=== PATIENT | male | born 1985 | race Caucasian/White ===

== ENCOUNTER 2016-10-30 23:52 | Emergency (ER) | payer OTHER ==
[~2016-10-30] VITALS: Ht 190.5 cm; Wt 101.6 kg
[2016-10-31] VITALS: BP 148/70; PULSE 61; RESP 17; TEMP 99.2; O2SAT 98
--- NOTE | 2016-10-31 | NUR ---
Patient to ER bed 4 for evaluation. Side rails up. Report given to NUBIA Bah.
--- NOTE | 2016-10-31 00:13 | NUR ---
Pt compalin of hitting his head and complain of right head and neack pain. Denied dizziness at the time. Denied SOB at the time. will continue to monitor
--- NOTE | 2016-10-31 00:15 | NUR ---
ER at bedside examining patient.
[2016-10-31] MEDS ORDERED: DULO60CA41 PO (00:18)
[2016-10-31] MEDS ORDERED: DEXL60CA3 PO (00:19)
[2016-10-31] MEDS ORDERED: BUPR300T55 PO (00:19)
[2016-10-31] MEDS ORDERED: TRAZ150T77 PO (00:20)
--- NOTE | 2016-10-31 00:30 | NUR ---
Pt was take to radiology.
[2016-10-31] MEDS ORDERED: ACETAMINOPHEN 500 MG TABLET PO ONE (01:30)
[2016-10-31 01:40] VITALS: BP 142/70; PULSE 61; RESP 17; TEMP 98.9; O2SAT 98
--- NOTE | 2016-10-31 01:40 | NUR ---
Patient given written and verbal discharge instructions and verbalizes understanding. ER MD discussed with patient the results and treatment provided. Patient in stable condition. Rx of tramadol given. Patient educated on pain management and to follow up with PMD. Pain Scale 0/10. Opportunity for questions provided and answered.
== END 2016-10-31 01:40 | disposition home or self-care (01) ==
LOC: SED 23:52
DX: S00.03XA Contusion of scalp, initial encounter (principal); Z88.2 Allergy status to sulfonamides; W22.8XXA Striking against or struck by other objects, initial encounter; Y93.89 Activity, other specified; Y92.89 Other specified places as the place of occurrence of the external cause; Y99.8 Other external cause status
CPT/HCPCS: 70450-TC; 99284

== ENCOUNTER 2016-11-26 23:34 | Emergency (ER) | payer OTHER ==
[~2016-11-26] VITALS: Ht 190.5 cm; Wt 103.0 kg
[~2016-11-26 23:34] MED LIST: BUPR300T55 PO; DEXL60CA3 PO; DULO60CA41 PO; TRAZ150T77 PO
[2016-11-26 23:40] VITALS: BP_SYST 148
[2016-11-27] MEDS ORDERED: KETOROLAC TROMETHAMINE 60 MG/2 ML VIAL IM ONE (03:15)
[2016-11-27 04:15] VITALS: BP_SYST 140
== END 2016-11-27 04:15 | disposition home or self-care (01) ==
LOC: SED 23:34
DX: G43.909 Migraine, unspecified, not intractable, without status migrainosus (principal); J45.909 Unspecified asthma, uncomplicated; Z88.2 Allergy status to sulfonamides; Z79.899 Other long term (current) drug therapy
CPT/HCPCS: 96372; 99283; J1885

== ENCOUNTER 2017-06-05 20:49 | Emergency (ER) | payer OTHER ==
[~2017-06-05] VITALS: Ht 190.5 cm; Wt 104.3 kg
[2017-06-05 20:50] VITALS: BP_SYST 145
[2017-06-05] MEDS ORDERED: ONDANSETRON 4 MG ODT TAB PO ONE (22:30)
[2017-06-05] MEDS ORDERED: NACL 0.9% 1,000 ML IV ONE (22:30)
[2017-06-05] MEDS ORDERED: KETOROLAC TROMETHAMINE 30 MG VIAL IVP ONE (23:15)
[2017-06-05 23:35] VITALS: BP_SYST 148
== END 2017-06-05 23:29 | disposition home or self-care (01) ==
LOC: SED 20:49
DX: A08.4 Viral intestinal infection, unspecified (principal); K21.9 Gastro-esophageal reflux disease without esophagitis; J45.909 Unspecified asthma, uncomplicated; F43.10 Post-traumatic stress disorder, unspecified; M79.1 Myalgia; Z88.2 Allergy status to sulfonamides; Z86.59 Personal history of other mental and behavioral disorders
CPT/HCPCS: 96361; 96374; 99284; J1885; J7030; Q0162

== ENCOUNTER 2018-05-09 04:34 | Emergency (ER) | payer OTHER ==
[~2018-05-09] VITALS: Ht 188 cm; Wt 113.4 kg
[~2018-05-09 04:34] MED LIST changes: -DEXL60CA3 PO; +DEXL60CA4 PO
[2018-05-09 04:35] VITALS: BP_SYST 134
[2018-05-09] MEDS ORDERED: NS 500 ML IV ONE (05:00)
[2018-05-09] MEDS ORDERED: ASPIRIN 325 MG TABLET (ECOTRIN) PO ONE (05:00)
[2018-05-09] MEDS ORDERED: LISI30TA36 PO (05:04)
[2018-05-09] MEDS ORDERED: BUPR-120 PO (05:05)
[2018-05-09] MEDS ORDERED: DULO60CA41 PO (05:06)
[2018-05-09] MEDS ORDERED: FAMOTIDINE PF 20 MG/2 ML VIAL IVP ONE (05:15)
[2018-05-09] MEDS ORDERED: ONDANSETRON HCL 4 MG/2 ML VIAL IVP ONE (05:15)
[2018-05-09 05:40] LABS: CLARITY/URINE CLEAR (CLEAR); COLOR,URINE YELLOW (YELLOW); GLUCOSE,URINE NEGATIVE (NEGATIVE); KETONES,URINE 1+ (NEGATIVE); PROTEIN URINE NEGATIVE (NEGATIVE)
[2018-05-09 05:40] LABS: BASOPHILS % (AUTO) 0.2 % (0.0-2.0); EOSINOPHILS # (AUTO) 0.1 K/uL (0.0-0.4); EOSINOPHILS % (AUTO) 1.4 % (0.0-4.0); HEMATOCRIT 46.4 % (36-54); HEMOGLOBIN 15.5 g/dL (14.0-18.0); LYMPHOCYTES # (AUTO) 1.7 K/uL (1.0-5.5); LYMPHOCYTES % (AUTO) 20.7 % (20.5-51.5); MEAN CORPUSCULAR HEMOGLOBIN 30 pg (27-31); MEAN CORPUSCULAR HGB CONC 33 % (32-36); MEAN CORPUSCULAR VOLUME 91 fL (79.0-98.0); MONOCYTES # (AUTO) 0.8 K/uL (0.0-1.0); MONOCYTES % (AUTO) 9.9 % (1.7-9.3); NEUTROPHILS # (AUTO) 5.5 K/uL (1.8-7.7); NEUTROPHILS % (AUTO) 67.8 % (40.0-70.0); PLATELET COUNT (AUTO) 190 K/uL (130-430); RED BLOOD CELL COUNT(AUTO) 5.09 MIL/uL (4.2-6.2); RED CELL DISTRIBUTION WIDTH 12.5 % (9.0-15.0); WHITE BLOOD COUNT (AUTO) 8.1 K/uL (4.8-10.8)
[2018-05-09 05:41] LABS: BILIRUBIN,URINE NEGATIVE (NEGATIVE); BLOOD, URINE NEGATIVE (NEGATIVE); LEUKOCYTE ESTERASE ,URINE NEGATIVE (NEGATIVE); NITRITE, URINE NEGATIVE (NEGATIVE); UROBILINOGEN,URINE 0.2 (0.2-1.0)
[2018-05-09 05:52] LABS: ANION GAP 12 (5-15); CALCIUM 9.4 mg/dL (8.4-11.0); CHLORIDE 98 mmol/L (98-107); CREATININE 1.17 mg/dL (0.55-1.30); GLUCOSE 114 mg/dL (70-99); POTASSIUM 3.6 mmol/L (3.5-5.1); SODIUM SERUM 136 mmol/L (136-145); UREA NITROGEN, BLOOD 28 mg/dL (8-21)
[2018-05-09 05:57] LABS: GFR AFRICAN AMERICAN 92 mL/min (>90)
[2018-05-09 06:05] LABS: ALANINE AMINOTRANSFERASE 46 U/L (12-78); ALBUMIN 4.1 g/dL (3.4-4.8); ASPARTATE AMINOTRANSFERASE 37 U/L (10-37); TOTAL BILIRUBIN 0.8 mg/dL (0.0-1.0)
[2018-05-09 06:21] VITALS: BP_SYST 128
== END 2018-05-09 06:21 | disposition home or self-care (01) ==
LOC: SED 04:34
DX: R07.89 Other chest pain (principal); F41.9 Anxiety disorder, unspecified; J45.909 Unspecified asthma, uncomplicated; K21.9 Gastro-esophageal reflux disease without esophagitis; F43.10 Post-traumatic stress disorder, unspecified; Z88.2 Allergy status to sulfonamides; Z79.899 Other long term (current) drug therapy
CPT/HCPCS: 36415; 71045; 80053; 81003; 84484; 85025; 93005; 96374; 96375; 99284; J2405; J3490; J7030

== ENCOUNTER 2018-06-16 12:03 | Emergency (ER) | payer OTHER ==
[~2018-06-16] VITALS: Ht 190.5 cm; Wt 109.3 kg
[~2018-06-16 12:03] MED LIST changes: +BUPR-120 PO; -BUPR300T55 PO; +LISI30TA36 PO
--- NOTE | 2018-06-16 12:15 | NUR ---
Mamta miller in [facility] - 06/16/18 at 1239 by [email or web address] ELVA Thayer at bedside examining patient.
--- NOTE | 2018-06-16 12:16 | NUR ---
Pt wheeled to bed 6
--- NOTE | 2018-06-16 12:16 | NUR ---
ER at bedside examining patient.
[2018-06-16 12:21] VITALS: BP_SYST 143
--- NOTE | 2018-06-16 12:25 | NUR ---
patient AAOx4 arriving from the gym. patient states he started having sever generalized cramps since working out. patient states he has a disorder that causes him to sweat a lot. 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 patient is otherwise healthy. no other complaint or injury at this time.
[2018-06-16] MEDS ORDERED: NACL 0.9% 1,000 ML IV ONE ×2 (12:30→13:45)
[2018-06-16] MEDS ORDERED: LORazepam 2 MG/ML VIAL (FOR ER USE) IVP ONE (12:30)
--- NOTE | 2018-06-16 12:43 | NUR ---
Medication was given to pt, tolerated well
[2018-06-16 13:04] LABS: BASOPHILS % (AUTO) 0.3 % (0.0-2.0); EOSINOPHILS # (AUTO) 0.1 K/uL (0.0-0.4); EOSINOPHILS % (AUTO) 0.9 % (0.0-4.0); HEMATOCRIT 49.5 % (36-54); LYMPHOCYTES % (AUTO) 14.4 % (20.5-51.5); MEAN CORPUSCULAR HEMOGLOBIN 31 pg (27-31); MEAN CORPUSCULAR HGB CONC 34 % (32-36); MEAN CORPUSCULAR VOLUME 90 fL (79.0-98.0); MONOCYTES # (AUTO) 0.7 K/uL (0.0-1.0); MONOCYTES % (AUTO) 9.4 % (1.7-9.3); NEUTROPHILS # (AUTO) 5.4 K/uL (1.8-7.7); PLATELET COUNT (AUTO) 213 K/uL (130-430); RED CELL DISTRIBUTION WIDTH 12.7 % (9.0-15.0); WHITE BLOOD COUNT (AUTO) 7.2 K/uL (4.8-10.8)
[2018-06-16 13:08] LABS: CALCIUM 10.5 mg/dL (8.4-11.0); CREATININE 1.9 mg/dL (0.55-1.30); POTASSIUM 4.6 mmol/L (3.5-5.1)
[2018-06-16 13:20] LABS: ALBUMIN 4.9 g/dL (3.4-4.8); TOTAL BILIRUBIN 0.7 mg/dL (0.0-1.0)
--- NOTE | 2018-06-16 13:40 | NUR ---
Pt is resting in bed with no noted distress or discomfort.
[2018-06-16 14:36] VITALS: BP_SYST 140
--- NOTE | 2018-06-16 14:36 | NUR ---
Patient given written and verbal discharge instructions and verbalizes understanding. ER MD discussed with patient the results and treatment provided. Patient in stable condition. ID arm band removed. IV catheter removed intact and dressing applied, no active bleeding. No Rx given. Patient educated on pain management and to follow up with PMD. Pain Scale 0. Opportunity for questions provided and answered.
== END 2018-06-16 14:36 | disposition home or self-care (01) ==
LOC: SED 12:03
DX: R25.2 Cramp and spasm (principal); E86.0 Dehydration; K21.9 Gastro-esophageal reflux disease without esophagitis; J45.909 Unspecified asthma, uncomplicated; I10 Essential (primary) hypertension; F43.10 Post-traumatic stress disorder, unspecified; Z88.2 Allergy status to sulfonamides; Z79.899 Other long term (current) drug therapy
CPT/HCPCS: 36415; 80053; 85025; 96361; 96374; 99283; J2060; J7030

== ENCOUNTER 2018-10-23 15:54 | Emergency (ER) | payer OTHER ==
[~2018-10-23] VITALS: Ht 188 cm; Wt 108.9 kg
[2018-10-23 15:56] VITALS: BP_SYST 147
[2018-10-23] MEDS ORDERED: ASPIRIN 81 MG TAB.CHEW PO ONE (17:30)
[2018-10-23 17:42] LABS: BASOPHILS % (AUTO) 0.3 % (0.0-2.0); EOSINOPHILS # (AUTO) 0.1 K/uL (0.0-0.4); HEMATOCRIT 45.8 % (36-54); HEMOGLOBIN 16.1 g/dL (14.0-18.0); LYMPHOCYTES # (AUTO) 1.1 K/uL (1.0-5.5); LYMPHOCYTES % (AUTO) 13.8 % (20.5-51.5); MEAN CORPUSCULAR HEMOGLOBIN 31 pg (27-31); MEAN CORPUSCULAR HGB CONC 35 % (32-36); MEAN CORPUSCULAR VOLUME 89 fL (79.0-98.0); MONOCYTES # (AUTO) 0.7 K/uL (0.0-1.0); MONOCYTES % (AUTO) 8.4 % (1.7-9.3); NEUTROPHILS # (AUTO) 6.3 K/uL (1.8-7.7); NEUTROPHILS % (AUTO) 76.5 % (40.0-70.0); PLATELET COUNT (AUTO) 181 K/uL (130-430); RED BLOOD CELL COUNT(AUTO) 5.15 MIL/uL (4.2-6.2); RED CELL DISTRIBUTION WIDTH 13.1 % (9.0-15.0); WHITE BLOOD COUNT (AUTO) 8.2 K/uL (4.8-10.8)
[2018-10-23 17:58] LABS: CALCIUM 9.5 mg/dL (8.4-11.0); CREATININE 1.38 mg/dL (0.55-1.30); POTASSIUM 4.3 mmol/L (3.5-5.1)
[2018-10-23 18:03] LABS: ALBUMIN 4.3 g/dL (3.4-4.8); TOTAL BILIRUBIN 0.6 mg/dL (0.0-1.0)
[2018-10-23] MEDS ORDERED: KETOROLAC TROMETHAMINE 60 MG/2 ML VIAL IM ONE (18:45)
[2018-10-23 20:57] VITALS: BP_SYST 132
== END 2018-10-23 20:57 | disposition home or self-care (01) ==
LOC: SED 15:54
DX: R07.89 Other chest pain (principal); I10 Essential (primary) hypertension; J45.909 Unspecified asthma, uncomplicated; K21.9 Gastro-esophageal reflux disease without esophagitis; Z88.2 Allergy status to sulfonamides; Z79.899 Other long term (current) drug therapy
CPT/HCPCS: 36415; 71045; 80053; 84484; 85025; 93005; 96372; 99284; J1885

== ENCOUNTER 2022-03-02 21:52 | Emergency (ER) | payer BC, OTHER ==
[~2022-03-02] VITALS: Ht 188 cm; Wt 79.4 kg
[~2022-03-02 21:52] MED LIST changes: -DULO60CA41 PO; +DULO60CA42 PO
[2022-03-02 22:06] VITALS: BP_SYST 150
--- NOTE | 2022-03-02 22:10 | NUR ---
PT HERE BIB BLS TRANSPORT C/O CRMAPING WITH NAUSEA AND VOMITING AFTER DOING JUJITSU TONIGHT. PT DENIES FALL/TRAUMA. PMH:HTN,PTSD PT AAOX4, NO SOB NOTED AND NOT IN ANY DISTRESS AT THIS TIME. PENDING MD MCKEON
[2022-03-02] MEDS ORDERED: NACL 0.9% 1,000 ML IV ONE (23:30)
[2022-03-03 00:18] LABS: EOSINOPHILS # (AUTO) 0.1 K/uL (0.0-0.4); RED BLOOD CELL COUNT(AUTO) 5.03 MIL/uL (4.2-6.2)
[2022-03-03 00:39] LABS: CALCIUM 9.7 mg/dL (8.4-11.0); CREATININE 1.58 mg/dL (0.55-1.30); POTASSIUM 4.4 mmol/L (3.5-5.1)
[2022-03-03 00:54] LABS: BASOPHILS # (AUTO) 0.2 K/uL (0.0-0.2); EOSINOPHILS % (AUTO) 0.8 % (0.0-4.0); HEMATOCRIT 44.5 % (36-54); LYMPHOCYTES # (AUTO) 0.9 K/uL (1.0-5.5); MEAN CORPUSCULAR VOLUME 89 fL (79.0-98.0); MONOCYTES # (AUTO) 0.8 K/uL (0.0-1.0); MONOCYTES % (AUTO) 7.6 % (1.7-9.3); NEUTROPHILS # (AUTO) 8.9 K/uL (1.8-7.7); NEUTROPHILS % (AUTO) 81.6 % (40.0-70.0); PLATELET COUNT (AUTO) 194 K/uL (130-430); RED CELL DISTRIBUTION WIDTH 13.5 % (9.0-15.0); WHITE BLOOD COUNT (AUTO) 10.9 K/uL (4.8-10.8)
[2022-03-03] MEDS ORDERED: NACL 0.9% 1,000 ML IV ONE (01:15)
--- NOTE | 2022-03-03 01:24 | NUR ---
Pt states he is still having leg cramps and requesting flexeril. made aware.
[2022-03-03 03:05] VITALS: BP_SYST 143
--- NOTE | 2022-03-03 03:14 | NUR ---
Patient given written and verbal discharge instructions and verbalizes understanding. ER MD discussed with patient the results and treatment provided. Patient in stable condition. ID arm band removed. IV catheter removed intact and dressing applied, no active bleeding. Rx of N/A given. Patient educated on pain management and to follow up with PMD. Pain Scale . Opportunity for questions provided and answered. Medication side effect fact sheet provided.
== END 2022-03-03 03:13 | disposition home or self-care (01) ==
LOC: SED 21:52
DX: T73.3XXA Exhaustion due to excessive exertion, initial encounter (principal); E86.0 Dehydration; N28.9 Disorder of kidney and ureter, unspecified; R53.1 Weakness; R25.2 Cramp and spasm; R42 Dizziness and giddiness; J45.909 Unspecified asthma, uncomplicated; I10 Essential (primary) hypertension; K21.9 Gastro-esophageal reflux disease without esophagitis; Z88.2 Allergy status to sulfonamides; Z79.899 Other long term (current) drug therapy; X58.XXXA Exposure to other specified factors, initial encounter
CPT/HCPCS: 99283; 80048; 85025; 36415; 96360; 96361; J7030